=== PATIENT | male | born 1985 | race Caucasian/White ===

== ENCOUNTER 2024-11-30 09:39 | Outpatient (RCR) | payer BC, SELFPAY ==
--- NOTE | 2024-12-04 23:47 | CTCCONSULT_ITS ---
Patient: XAVIER CURRY : 1985 MR#: [id number] Page 2 of 3 CONSULTATION NOTE DATE OF CONSULTATION: 11/30/2024 NAME: XAVIER CURRY ACCOUNT: [id number] : 1985 AGE: 39 REFERRING PHYSICIAN: Alicia Cota MD PRIMARY PHYSICIAN: REASON FOR VISIT: Polycythemia HISTORY OF PRESENT ILLNESS: 39-year-old male here to establish his care. Patient states that he was diagnosed with polycythemia vera at [facility]. Patient has been getting phlebotomy. He gets phlebotomized every week to keep his hematocrit below 45. He has been feeling tired and short of breath and attributes it to delaying his phlebotomy. Is not aware if he has JAK2 mutation. Patient is not on testosterone supplement. OTHER MEDICAL HISTORY/CONDITIONS: Polycythemia Diverticulitis - HTN Neurofibromatosis Cholecystectomy - 2018 Several bowel surgeries / appendectomy - related to perforation/peritonitis - 1998 FAMILY HISTORY: Children: Pat grandpa-lung/pancreatic - dx 70's; pat aunt - skin-30' Cancer History:?Mat grandma- breast - dx 50's; Pat grandma - bladder - dx 40 SOCIAL HISTORY: Occupational?History:?[employer] - [employer] Education?Level:?College Graduate, 2 year degree Marital?Status:? Tobacco?Use:?Denies ETOH?Use:?Socailly Drug?Note:?Denies Social?History?Note:?Lives?with? MEDICATIONS: 1. cyproheptadine - 4 mg 1 tab Every day before sleep 2. losartan - 50 mg 1 tab Daily Medications Last Reconciled by Seble Feng RN on 11/30/2024 ALLERGIES: No Known Drug Allergies REVIEW OF SYSTEMS: A complete 14-point review of systems was performed and is negative except as noted in interval history. PHYSICAL EXAMINATION: VITAL SIGNS: Temperature?98.8, B/P?145/87, Height?68?inches, Oxygen?Saturation?99% Weight?172?lbs PAIN: 0 - No pain ECOG Performance Status: 1 - Symptomatic; ambulatory; restricted in strenuous activity GENERAL APPEARANCE: Appears well, in no apparent distress, appropriately interactive. HEENT: Normocephalic, no temporal wasting, normal conjunctiva, no scleral icterus, normal hearing, lips without lesions, neck normal range of motion. CARDIOVASCULAR: Not assessed. PULMONARY: Normal respiratory effort, no respiratory distress or use of accessory muscles, speaking in full sentences, no tachypnea. EXTREMITIES: No pedal edema or cyanosis. SKIN: Normal skin appearance. NEUROLOGIC: Alert and oriented x4. PSHYCHIATRIC: Appropriate affect, mood normal, behavior normal, intact thought and speech. LABORATORY DATA: I have personally reviewed and interpreted each of the patient?s relevant lab tests, abnormal findings are below: Date ASSESSMENT/PLAN: #1 polycythemia Patient is a known with a diagnosis of polycythemia and has been on phlebotomy I will order phlebotomy to keep hematocrit below 45 with the support of normal saline IV fluid Will check for JAK2 mutation Testosterone level CBC CMP Liver ultrasound I will get port catheter placed for patient for long-term phlebotomy CBC CMP phlebotomy orders port catheter placement JAK2 mutation HFE mutation RETURN TO CLINIC: 4 weeks BILLING AND COMPLIANCE: I reviewed external records from providers outside my specialty as summarized above. I spent a total of 50 minutes on this patient?s care on the day of their visit excluding time spent related to any billed procedures. This time includes time spent with the patient as well as time spent documenting in the medical record, reviewing patients records and tests, obtaining history, placing orders, communicating with other healthcare professionals, counseling the patient, family or caregiver, and/or care coordination for the diagnoses above. Electronically Signed by: Chucho Vick MD T: 11:45 PM CC: PCP: Referring: Alicia Cota This document was completed utilizing speech recognition software. Grammatical errors, random word insertions, pronoun errors, and incomplete sentences are an occasional consequence of this system due to software limitations, ambient noise, and hardware issues. Any formal questions or concerns about the content, text or information contained within the body of this dictation should be directly addressed to the provider for clarification.
== END 2024-12-26 23:59 | disposition home or self-care (01) ==
LOC: SCTC 09:39
PROVIDERS: PCP Registered Nurse; Referring Provider Registered Nurse; Visit Provider Internal Medicine Hematology & Oncology
DX: D45 Polycythemia vera (principal)
CPT/HCPCS: 99213; G0463

== ENCOUNTER → 2024-12-08 | Outpatient (CLI) | payer BC, SELFPAY ==
[2024-12-08 09:31] LABS: Flow Cytometry* See Sep Rpt; Misc Send Out* See Sep Rpt
[2024-12-08 11:02] LABS: Basophils # (Auto) 0.1 Thou/mm3 (0.0-0.2); Basophils % (Auto) 1 % (0-2.5); Eosinophils # (Auto) 0.3 Thou/mm3 (0.0-0.5); Eosinophils % (Auto) 6 % (0-10); Hematocrit 52.4 % (41.0-53.0); Hemoglobin 17.9 g/dL (13.5-16.0); Immature Granulocytes % (Auto) 0 % (0-0); Immature Granulocytes Auto 0.01 Thou/mm3 (0.00-0.00); Lymphocytes % (Auto) 19 % (10-50); Mean Corpuscular HGB Conc 34.2 g/dl (31.0-37.0); Mean Corpuscular Hemoglobin 30.3 pg (25.0-35.0); Mean Corpuscular Volume 89 fL (80-100); Monocytes # (Auto) 0.6 Thou/mm3 (0.0-0.8); Monocytes % (Auto) 12 % (0-12); Neutrophils # (Auto) 3.2 Thou/mm3 (1.8-7.7); Neutrophils % (Auto) 61 % (37-80); Nucleated Red Blood Cell % 0 /100 WBC (0); Platelet Count 224 Thou/mm3 (140-440); RDW Standard Deviation 46.7 fL (35.1-43.9); Red Blood Count 5.91 Miln/mm3 (4.50-5.90); White Blood Count 5.3 Thou/mm3 (3.8-10.6)
[2024-12-08 11:32] LABS: Alanine Aminotransferase 64 U/L (10-49); Albumin, Serum 4.2 gm/dL (3.5-5.0); Albumin/Globulin Ratio 1.7 (1.2-2.2); Alkaline Phosphatase 73 U/L (46-116); Anion Gap 10 (7-16); Aspartate Amino Transferase 32 U/L (0-34); BUN/Creatinine Ratio 19 Ratio (12-20); Bilirubin,Total 0.9 mg/dL (0.3-1.2); Blood Urea Nitrogen 21 mg/dL (9-23); Calcium 9.8 mg/dL (8.3-10.6); Calcium (Corrected) 9.8 mg/dL (8.5-10.1); Carbon Dioxide 25.7 mMol/L (20.0-31.0); Chloride 105 mMol/L (98-107); Creatinine (Component) 1.1 mg/dL (0.6-1.3); Globulin 2.5 gm/dL (2.3-3.5); Glucose 96 mg/dL (74-106); Osmolality,Calculated 284 (275-295); Potassium 4.3 mMol/L (3.4-5.1); Sodium 141 mMol/L (136-145); Total Protein 6.7 gm/dL (5.7-8.2); eGFR > 60 See Note
[2024-12-14 06:51] LABS: Erythropoietin (EPO)* 4.6 mIU/mL (2.6-18.5); Testosterone,Total* 154 ng/dL (250-1100)
== END | disposition home or self-care (01) ==
LOC: SCTO 09:03
PROVIDERS: PCP Family Medicine; Referring Provider Internal Medicine Hematology & Oncology; Visit Provider Internal Medicine Hematology & Oncology
DX: D45 Polycythemia vera (principal)
CPT/HCPCS: 36415; 80053; 81219; 81256; 81270; 81279; 81339; 82668; 84403; 85025

== ENCOUNTER → 2025-01-02 | Outpatient (CLI) | payer BC, SELFPAY ==
--- NOTE | 2025-01-02 11:00 | XR_ITS ---
Examination: Abdomen sonogram, Limited Date and time of exam: January 02 2025, 11:00 AM Indications: Clinical diagnosis cirrhosis Technique: Real-time sanchez scale transabdominal sonographic images of the upper abdomen obtained. Findings: Absent gallbladder Normal common bile duct 0.3 cm Pancreatic head 3.4 cm Liver 13.4 cm smooth contour no focal liver lesions Normal hepatopedal portal venous flow Patent IVC Impression: Absent gallbladder Normal common bile duct Normal liver
== END | disposition home or self-care (01) ==
LOC: CDIM 10:54
PROVIDERS: PCP Family Medicine; Referring Provider Internal Medicine Hematology & Oncology; Visit Provider Internal Medicine Hematology & Oncology
DX: D45 Polycythemia vera (principal); Z90.49 Acquired absence of other specified parts of digestive tract
CPT/HCPCS: 76705

== ENCOUNTER 2025-01-06 06:55 | Day surgery (SDC) | payer BC, SELFPAY ==
[2025-01-05 06:50] VITALS: BMI 26.3
--- NOTE | 2025-01-05 07:10 | EKG_ITS ---
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
[2025-01-05 08:45] LABS: Basophils # (Auto) 0.1 Thou/mm3 (0.0-0.2); Basophils % (Auto) 1 % (0-2.5); Eosinophils # (Auto) 0.4 Thou/mm3 (0.0-0.5); Eosinophils % (Auto) 6 % (0-10); Hematocrit 50.8 % (41.0-53.0); Hemoglobin 17.5 g/dL (13.5-16.0); Immature Granulocytes % (Auto) 0 % (0-0); Immature Granulocytes Auto 0.02 Thou/mm3 (0.00-0.00); Lymphocytes # (Auto) 1.1 Thou/mm3 (1.0-4.8); Lymphocytes % (Auto) 20 % (10-50); Mean Corpuscular HGB Conc 34.4 g/dl (31.0-37.0); Mean Corpuscular Hemoglobin 30.8 pg (25.0-35.0); Mean Corpuscular Volume 89 fL (80-100); Monocytes # (Auto) 0.8 Thou/mm3 (0.0-0.8); Monocytes % (Auto) 14 % (0-12); Neutrophils # (Auto) 3.3 Thou/mm3 (1.8-7.7); Neutrophils % (Auto) 59 % (37-80); Nucleated Red Blood Cell % 0 /100 WBC (0); Platelet Count 219 Thou/mm3 (140-440); RDW Standard Deviation 48.7 fL (35.1-43.9); Red Blood Count 5.69 Miln/mm3 (4.50-5.90); White Blood Count 5.6 Thou/mm3 (3.8-10.6)
[2025-01-05 09:01] LABS: Alanine Aminotransferase 52 U/L (10-49); Albumin, Serum 4.3 gm/dL (3.5-5.0); Albumin/Globulin Ratio 1.7 (1.2-2.2); Alkaline Phosphatase 95 U/L (46-116); Anion Gap 6 (7-16); Aspartate Amino Transferase 34 U/L (0-34); BUN/Creatinine Ratio 14 Ratio (12-20); Bilirubin,Total 0.8 mg/dL (0.3-1.2); Blood Urea Nitrogen 18 mg/dL (9-23); Calcium 9.4 mg/dL (8.3-10.6); Calcium (Corrected) 9.4 mg/dL (8.5-10.1); Carbon Dioxide 27.9 mMol/L (20.0-31.0); Chloride 106 mMol/L (98-107); Creatinine (Component) 1.3 mg/dL (0.6-1.3); Estimated Creatinine Clearance 72.3 mL/min (>60); Globulin 2.5 gm/dL (2.3-3.5); Glucose 106 mg/dL (74-106); Osmolality,Calculated 281 (275-295); Potassium 4.6 mMol/L (3.4-5.1); Sodium 140 mMol/L (136-145); Total Protein 6.8 gm/dL (5.7-8.2); eGFR > 60 See Note
[2025-01-05 09:19] LABS: INR 0.9 (0.9-1.3); Partial Thromboplastin Time 27.8 Seconds (22.0-36.0); Prothrombin Time 10.1 Seconds (9.0-12.2)
--- NOTE | 2025-01-05 14:22 | SUR.PREOP ---
Records requested from charge authorizer Li Fajardo, waiting for paper work.
[2025-01-06] VITALS (9 sets, daily range): BP systolic 123–136; BP diastolic 79–94; PULSE 78–97; RESP 13–18; TEMP 36.8–37.1; O2SAT 97–100; BMI 26.9
--- NOTE | 2025-01-06 07:52 | SUR.PREOP ---
Patient expressed gratitude for prayer before their procedure.
[2025-01-06] MEDS: RINGERS LACTATED 1000 ML 1,000 ML 20 ML IV (07:55)
--- NOTE | 2025-01-06 07:55 | SUR.PREOP ---
Addendum entered by Kami Zhu RN 01/06/25 08:28: No new order from Dr. Gandara Original Note: 0745: Informed Dr. Gandara for no cardiac clearance d/t patient seen cotton chopper, per patient stated, My heart was monitor because I had palpitations and faint before. Patient asymptomatic from chest pain and palpitations.
--- NOTE | 2025-01-06 09:54 | XR_ITS ---
Examination: AP chest single view Technique: AP portable supine chest single view Exam date and time: January 06, 2025 1058 hrs. Comparison July 29, 2024 Indications: Status post Port-A-Cath insertion Findings: Right subclavian Port-A-Cath tip right atrium No pneumothorax Prominent vascular congestion Impression: Right subclavian Port-A-Cath tip satisfactory position
--- NOTE | 2025-01-06 11:44 | SUR.PHASEI ---
1144: received patient from OR via [facility]. received report from KEY Byers and Dr. Gandara. oral airway in place. pt sleeping. no s/s of pain or discomfort. no s/s of resp. discomfort. dressing to right upper chest clean, dry and intact. no bleeding from the dressing.
--- NOTE | 2025-01-06 11:48 | SUR.PHASEI ---
1148: pt able to open mouth when ask. oral airway removed at this time.
--- NOTE | 2025-01-06 11:51 | XR_ITS ---
Examination: AP chest single view Technique one AP portable upright chest single view Exam date and time: January 06, 2025 1210 hrs. Comparison January 06, 2025 10:58 AM Indications: Postop Port-A-Cath insertion. Findings: Right subclavian Port-A-Cath tip SVC satisfactory position No pneumothorax Minor prominence of ventricle Impression: Port-A-Cath satisfactory position
--- NOTE | 2025-01-06 11:53 | ESOP_ITS ---
Date of Procedure 01/06/25 Pre Op Diagnosis Polycythemia vera requiring Port-A-Cath Post Op Diagnosis Same Procedure Insertion of a Port-A-Cath using ultrasound guidance Findings I used the right subclavian vein which was easily identified and inserted regular port from [employer] called Profuse Procedure Description After the patient was brought to the operating room he was placed in supine position. Site-Rite ultrasound was used to identify the right subclavian vein and I chose this for insertion of the Port-A-Cath. After the patient's chest and neck were prepped with chloreprep solution and draped I used a mini stick to get into the left subclavian vein. Then I passed a small guidewire measuring 0.018 inch in diameter into the vein. Then this was switched over to a catheter to accommodate larger guidewire measuring 0.035 inches in diameter which was basically a J-wire. Then I used a 9 Macanese valved vessel dilator over the g uidewire which was then pulled out. Then I introduced a 8 Macanese polyurethane catheter from the [employer] and positioned it on the distal part of the superior vena cava. An x-ray was obtained to confirm the position of the tip. The tip was about 23 cm from the insertion site. Then I made a small pocket 5 cm's below the entry site on the right chest below the clavicle to accommodate the port after injecting local anesthesia with 1% Xylocaine. Then I tunneled the polyurethane catheter from the entry site to this pocket in the chest wall and I connected it to regular port from [employer] called profuse using a catheter lock. Excellent blood return was obtained at the end of the procedure and this was flushed with heparinized saline. Then the port was attached to the chest wall muscle using 0 Vicryl sutures. Subcutaneous tissues was closed with 3-0 chromic and the skin by 5-0 nylon stitches. Dressing was applied with Adaptic and 4 x 4 and the patient tolerated the procedure well and left operating room in stable condition. Anesthesia other (General LMA) Pathology / specimen None Estimated Blood Loss 30 Surgeon Isac Boyce MD Surgical Staff Operation Date: 01/06/25 09:00 Case Staff Anesthesiologist: Jamie Gandara
--- NOTE | 2025-01-06 12:02 | SUR.PHASEI ---
1202 Report received from Kami Gilbert RN
--- NOTE | 2025-01-06 12:02 | SUR.PHASEI ---
1202: report given to KEY Herrera. pt alert and oriented. no s/s of rsp. distress or discomfort. dressing to right upper chest clean, dry and intact. no bleeding from dressing.
--- NOTE | 2025-01-06 12:18 | SUR.PHASEI ---
1218 telephone order read back from Dr. Gandara for Ofirmev 1gm via IV, will place order in EMR and administer per MD order
[2025-01-06] MEDS: ACETAMINOPHEN IVPB 1,000 MG/100 ML VIAL 250 MG IV (12:23)
--- NOTE | 2025-01-06 13:04 | SUR.PHASEII ---
1304 Patient meets discharge criteria from recovery, awake and alert, breathing unlabored, vital signs stable, per patient his pain is tolerable, dressing intact; no bleeding noted, patient voided in the restroom prior to discharge, drinking fluids; denies nausea, discharge instructions given to patient and his sister, sister signed discharge instructions. Patient given all his belongings prior to discharge, transported via wheelchair and left in a private vehicle.
== END 2025-01-06 13:04 | disposition home or self-care (01) ==
PROVIDERS: PCP Family Medicine; Referring Provider Surgery; Visit Provider Surgery
PROC: (CPT 36561; principal; 2025-01-06 08:45)
DX: D45 Polycythemia vera (principal); Z01.810 Encounter for preprocedural cardiovascular examination; I10 Essential (primary) hypertension; K21.9 Gastro-esophageal reflux disease without esophagitis
CPT/HCPCS: 36561; 36415; 71045; 71046; 80053; 85025; 85610; 85730; 93005; A4217; A4649; C1788; C1894; J0131; J2250; J2405; J2704; J2765; J3010; J7120; J7999

== ENCOUNTER 2025-01-17 13:42 | Outpatient (RCR) | payer BC, SELFPAY ==
[2025-01-10 14:49] LABS: Basophils % (Auto) 1 % (0-2.5); Eosinophils # (Auto) 0.4 Thou/mm3 (0.0-0.5); Eosinophils % (Auto) 5 % (0-10); Hemoglobin 16.4 g/dL (13.5-16.0); Immature Granulocytes % (Auto) 1 % (0-0); Immature Granulocytes Auto 0.04 Thou/mm3 (0.00-0.00); Lymphocytes # (Auto) 1.1 Thou/mm3 (1.0-4.8); Lymphocytes % (Auto) 15 % (10-50); Mean Corpuscular HGB Conc 34.9 g/dl (31.0-37.0); Mean Corpuscular Hemoglobin 30.4 pg (25.0-35.0); Mean Corpuscular Volume 87 fL (80-100); Monocytes # (Auto) 0.9 Thou/mm3 (0.0-0.8); Monocytes % (Auto) 12 % (0-12); Neutrophils % (Auto) 67 % (37-80); Nucleated Red Blood Cell % 0 /100 WBC (0); Platelet Count 181 Thou/mm3 (140-440); RDW Standard Deviation 47.1 fL (35.1-43.9); Red Blood Count 5.39 Miln/mm3 (4.50-5.90); White Blood Count 7.4 Thou/mm3 (3.8-10.6)
[2025-01-17 14:50] LABS: Basophils # (Auto) 0.1 Thou/mm3 (0.0-0.2); Basophils % (Auto) 1 % (0-2.5); Eosinophils # (Auto) 0.4 Thou/mm3 (0.0-0.5); Eosinophils % (Auto) 6 % (0-10); Hematocrit 41.2 % (41.0-53.0); Hemoglobin 14.8 g/dL (13.5-16.0); Immature Granulocytes % (Auto) 1 % (0-0); Immature Granulocytes Auto 0.04 Thou/mm3 (0.00-0.00); Lymphocytes # (Auto) 1.3 Thou/mm3 (1.0-4.8); Lymphocytes % (Auto) 21 % (10-50); Mean Corpuscular HGB Conc 35.9 g/dl (31.0-37.0); Mean Corpuscular Hemoglobin 31.2 pg (25.0-35.0); Mean Corpuscular Volume 87 fL (80-100); Monocytes # (Auto) 0.8 Thou/mm3 (0.0-0.8); Monocytes % (Auto) 13 % (0-12); Neutrophils # (Auto) 3.7 Thou/mm3 (1.8-7.7); Neutrophils % (Auto) 59 % (37-80); Nucleated Red Blood Cell % 0 /100 WBC (0); Platelet Count 199 Thou/mm3 (140-440); RDW Standard Deviation 46.9 fL (35.1-43.9); Red Blood Count 4.75 Miln/mm3 (4.50-5.90); White Blood Count 6.4 Thou/mm3 (3.8-10.6)
== END 2025-01-25 23:59 | disposition home or self-care (01) ==
LOC: SCTC 13:42
PROVIDERS: PCP Family Medicine; Referring Provider Family Medicine; Visit Provider Internal Medicine Hematology & Oncology
DX: D45 Polycythemia vera (principal)
CPT/HCPCS: 36591; 85025; 99195; A4216; J7040

== ENCOUNTER 2025-02-21 14:15 | Outpatient (RCR) | payer BC, SELFPAY ==
[2025-02-07 14:58] LABS: Basophils % (Auto) 0 % (0-2.5); Eosinophils # (Auto) 0.1 Thou/mm3 (0.0-0.5); Eosinophils % (Auto) 1 % (0-10); Hematocrit 38.8 % (41.0-53.0); Hemoglobin 13.6 g/dL (13.5-16.0); Immature Granulocytes % (Auto) 1 % (0-0); Immature Granulocytes Auto 0.05 Thou/mm3 (0.00-0.00); Lymphocytes # (Auto) 1.2 Thou/mm3 (1.0-4.8); Lymphocytes % (Auto) 11 % (10-50); Mean Corpuscular HGB Conc 35.1 g/dl (31.0-37.0); Mean Corpuscular Hemoglobin 31.5 pg (25.0-35.0); Mean Corpuscular Volume 90 fL (80-100); Monocytes # (Auto) 0.7 Thou/mm3 (0.0-0.8); Monocytes % (Auto) 7 % (0-12); Neutrophils # (Auto) 8.4 Thou/mm3 (1.8-7.7); Neutrophils % (Auto) 80 % (37-80); Nucleated Red Blood Cell % 0 /100 WBC (0); Platelet Count 243 Thou/mm3 (140-440); RDW Standard Deviation 48.7 fL (35.1-43.9); Red Blood Count 4.32 Miln/mm3 (4.50-5.90); White Blood Count 10.5 Thou/mm3 (3.8-10.6)
[2025-02-21 15:17] LABS: Basophils % (Auto) 1 % (0-2.5); Eosinophils # (Auto) 0.2 Thou/mm3 (0.0-0.5); Eosinophils % (Auto) 2 % (0-10); Hematocrit 46.4 % (41.0-53.0); Hemoglobin 15.8 g/dL (13.5-16.0); Immature Granulocytes % (Auto) 0 % (0-0); Immature Granulocytes Auto 0.02 Thou/mm3 (0.00-0.00); Lymphocytes # (Auto) 1.3 Thou/mm3 (1.0-4.8); Lymphocytes % (Auto) 20 % (10-50); Mean Corpuscular HGB Conc 34.1 g/dl (31.0-37.0); Mean Corpuscular Hemoglobin 31.4 pg (25.0-35.0); Mean Corpuscular Volume 92 fL (80-100); Monocytes # (Auto) 0.7 Thou/mm3 (0.0-0.8); Monocytes % (Auto) 11 % (0-12); Neutrophils # (Auto) 4.4 Thou/mm3 (1.8-7.7); Neutrophils % (Auto) 66 % (37-80); Nucleated Red Blood Cell % 0 /100 WBC (0); Platelet Count 245 Thou/mm3 (140-440); RDW Standard Deviation 50.1 fL (35.1-43.9); Red Blood Count 5.03 Miln/mm3 (4.50-5.90); White Blood Count 6.7 Thou/mm3 (3.8-10.6)
== END 2025-02-25 23:59 | disposition home or self-care (01) ==
LOC: SCTC 14:15
PROVIDERS: PCP Family Medicine; Referring Provider Nurse Practitioner Family; Visit Provider Nurse Practitioner Family
DX: D75.1 Secondary polycythemia (principal); E29.1 Testicular hypofunction
CPT/HCPCS: 36591; 85025; 99195; 99212; A4216; J1642; J7040; G0463

== ENCOUNTER 2025-03-10 22:13 | Inpatient (IN) | payer BC, SELFPAY ==
[2025-03-10 22:14] VITALS: BMI 27.2
[2025-03-10 22:22] VITALS: BP 137/97; PULSE 103; RESP 20; TEMP 37.2; O2SAT 97
--- NOTE | 2025-03-10 22:40 | XR_ITS ---
Examination: CT abdomen with intravenous contrast CT pelvis with intravenous contrast 2-D coronal reconstructions 2-D sagittal reconstructions Date and time of exam:March 11, 2025 1501 hours Comparison July 29, 2024 INDICATIONS: Generalized abdominal pain nausea vomiting today, history kidney stones. CTDI: vol (mGy) 7.7 DLP: (mGycm) 450 Technique: Multiple axial sections of the abdomen and pelvis have been obtained. 64 slice high-resolution scanner used. 3 mm axial sections have been obtained, post intravenous injection 60 cc Isovue-370 2-D sagittal, coronal reconstructions obtained. Low dose protocols were performed. One or more of the following dose reduction techniques were used; automated exposure control, adjustment of the mA and/or KV according to patient size, use of iterative reconstruction technique. Findings: Bibasilar pneumonia Hepatosplenomegaly fatty infiltration throughout the liver Absent gallbladder Common bile duct 8 mm No peripancreatic edema next line and no hydronephrosis Fluid distended small bowel loops with mild wall thickening No prostatomegaly Urinary bladder intact Osseous structures intact IMPRESSION: Bibasilar pneumonia Abnormal small bowel loops are fluid distended with wall thickening, consider enteritis such as Crohn's disease, early small bowel obstruction not excluded, consider Gastrografin small bowel series follow-up
--- NOTE | 2025-03-10 22:42 | EDRME_ITS ---
Rapid Medical Screening Exam [facility] Arrival date/time: 03/10/25 22:13 40M with history of diverticulitis w/ complications and polycythemia vera presents to ED with 2 days of ab pain and N/V. Patient denies dysuria and diarrhea. Chief Complaint: Abdominal Pain Vital signs: Vital Signs Temperature 98.9 F 03/10/25 22:22 Pulse Rate 103 H 03/10/25 22:22 Respiratory Rate 20 03/10/25 22:22 Blood Pressure 137/97 H 03/10/25 22:22 Pulse Oximetry (%) 97 03/10/25 22:22 Oxygen Delivery Method Room Air 03/10/25 22:22
[2025-03-10 23:03] LABS: Lactate (Lactic Acid) 2.2 mMol/L (0.4-2.0)
[2025-03-10 23:07] LABS: Basophils % (Auto) 0 % (0-2.5); Eosinophils # (Auto) 0.3 Thou/mm3 (0.0-0.5); Eosinophils % (Auto) 4 % (0-10); Hematocrit 52.4 % (41.0-53.0); Hemoglobin 17.3 g/dL (13.5-16.0); Immature Granulocytes % (Auto) 0 % (0-0); Immature Granulocytes Auto 0.03 Thou/mm3 (0.00-0.00); Lymphocytes # (Auto) 1.5 Thou/mm3 (1.0-4.8); Lymphocytes % (Auto) 18 % (10-50); Mean Corpuscular Volume 91 fL (80-100); Monocytes # (Auto) 1.3 Thou/mm3 (0.0-0.8); Monocytes % (Auto) 15 % (0-12); Neutrophils # (Auto) 5.3 Thou/mm3 (1.8-7.7); Neutrophils % (Auto) 63 % (37-80); Nucleated Red Blood Cell % 0 /100 WBC (0); Platelet Count 291 Thou/mm3 (140-440); RDW Standard Deviation 47.8 fL (35.1-43.9); Red Blood Count 5.77 Miln/mm3 (4.50-5.90); White Blood Count 8.5 Thou/mm3 (3.8-10.6)
[2025-03-10 23:41] LABS: Alanine Aminotransferase 32 U/L (10-49); Albumin, Serum 4.5 gm/dL (3.5-5.0); Albumin/Globulin Ratio 1.7 (1.2-2.2); Alkaline Phosphatase 63 U/L (46-116); Anion Gap 14 (7-16); Aspartate Amino Transferase 24 U/L (0-34); BUN/Creatinine Ratio 8 Ratio (12-20); Bilirubin,Total 0.5 mg/dL (0.3-1.2); Blood Urea Nitrogen 12 mg/dL (9-23); Calcium 9.3 mg/dL (8.3-10.6); Calcium (Corrected) 9.3 mg/dL (8.5-10.1); Carbon Dioxide 24.4 mMol/L (20.0-31.0); Chloride 101 mMol/L (98-107); Creatinine (Component) 1.5 mg/dL (0.6-1.3); Estimated Creatinine Clearance 62.1 mL/min (>60); Globulin 2.7 gm/dL (2.3-3.5); Glucose 99 mg/dL (74-106); Lipase 31 U/L (12-53); Osmolality,Calculated 277 (275-295); Potassium 4.1 mMol/L (3.4-5.1); Procalcitonin 0.13 ng/ml (0.0-0.49); Sodium 139 mMol/L (136-145); Total Protein 7.2 gm/dL (5.7-8.2); eGFR 59 See Note
[2025-03-11] VITALS (36 sets, daily range): BP systolic 123–157; BP diastolic 70–98; PULSE 78–97; RESP 4–20; TEMP 36.1–37.3; O2SAT 93–100; BMI 27.3
[2025-03-11] MEDS: MORPHINE SULF INJ 10 MG/ML VIAL 5 MG IVP ×2 (00:23→06:57)
[2025-03-11] MEDS: ONDANSETRON INJ 2 MG/ML INJ 2 ML 4 MG IV ×2 (00:24→06:57)
[2025-03-11] MEDS: SODIUM CHLORIDE 0.9% 1000 ML 1,000 ML 999 ML IV ×2 (00:24→05:43)
--- NOTE | 2025-03-11 00:29 | EDNOTE_ITS ---
ED Abdominal Pain RME/HPI General Chief Complaint: Abdominal Pain Stated complaint: ABD PAIN, VOMITING, HIGH BP Arrival date/time: 03/10/25 22:13 RME / HPI RME / HPI narrative: 03/10/25 22:13 40M with history of diverticulitis w/ complications and polycythemia vera presents to ED with 2 days of ab pain and N/V. Patient denies dysuria and diarrhea. DR LIN MAIN ED EVALUATION: 40 y/o male with SHx of colectomy and PMHx of Gall Bladder Disease, Diverticulitis, Obstructive Bowel and Gastroesophageal Reflux Disease presents to ED c/o abdominal pain, vomiting, chills, piles of blood in his stool, and constipation x 2 days. States he is usually able to go to the bathroom up to 15 times per day, but now has not had a bowel movement in the last 2 days. Patient has tried Pepcid, Pepto Bismol, and drinking soda with no relief. Patient has undergone 11 surgeries since he was a child, including removing 13 inches of the small intestine and appendectomy, s/p rupture of the small intestine. Patient denies fever, tarry stool or any other associated symptoms or aggravating factors. No modifying factors, no radiation, no migration. No severe pain reported overall. Related Data Home Medications ?Medication ?Instructions ?Recorded ?Confirmed cyproheptadine 4 mg tablet 4 mg PO HS 01/05/25 5 losartan 50 mg tablet (Cozaar) 50 mg PO QDAY 01/05/25 01/06/25 Allergies Allergy/AdvReac Type Severity Reaction Status Date / Time No Known Allergies Allergy Verified 03/10/25 22:14 Review of Systems Review of Systems Systems Reviewed: All systems reviewed, normal except as documented Past Medical History Past Medical History CARDIAC: Positive Cardiac Disorders and Hypertension GASTROINTESTINAL: Positive Gall Bladder Disease, Diverticulitis, Obstructive Bowel and Gastroesophageal Reflux Disease GENITOURINARY: Positive Genitourinary Disorders HEMATOLOGIC: Positive Blood Disorders (Polycythemia vera) and Clotting Problems PSYCHO/SOCIAL: Positive Anxiety OTHER HISTORY: Positive Hospitalization and Blood Transfusions Family History FAMILY HISTORY: Positive Family Cardiac Disorders, Family Cancer and Family Surgery Surgical History SURGICAL: Positive Abdominal Surgery and Bowel Surgery (Colectomy) ED Exam Narrative Physical exam: GENERAL APPEARANCE: alert and oriented x 4, well-developed, well-nourished, no acute distress VITALS: All vitals were reviewed and the pulse ox is % on room air, which is normal according to my interpretation. HEENT: Normocephalic, atraumatic; pupils equal, round, reactive to light; EOMI; mucous membranes pink, moist; oropharynx clear NECK: Supple LUNGS: CTABL; no wheezes, no rales, no rhonchi HEART: Regular rate, regular rhythm; normal S1, S2; no murmurs ABDOMEN: moderately distended; high-pitched BS; soft, diffusely tender, no guarding, no rebound; no masses, no organomegaly, no hernia BACK: no CVA tenderness EXTREMITIES: atraumatic; no edema NEUROLOGIC: awake; alert and oriented x4; cranial nerves II-XII grossly intact; no focal sensory or motor deficits PSYCHIATRIC: appropriate mood and affect SKIN: warm, dry, normal color; no rashes Course Quality Measures none Orders Category Date Time Status CT Screening NOW Care 03/10/25 22:41 Active Insert IV NOW Care 03/10/25 22:[address] abdomen pelvis w con Stat Exams 03/10/25 22:40 Taken CBC Stat Lab 03/10/25 22:46 Completed CMP [Comprehensive Metabolic Panel] Stat Lab 03/10/25 22:46 Completed Drug Screen,Urine Stat Lab 03/10/25 22:42 Ordered Lactate (Lactic Acid) Stat Lab 03/10/25 22:46 Completed Lactic Acid, 3 HR Stat Lab 03/11/25 02:10 Completed Lipase Stat Lab 03/10/25 22:46 Completed Procalcitonin Stat Lab 03/10/25 22:46 Completed Urinalysis, C/S if Indicated Stat Lab 03/10/25 22:42 Ordered Morphine Inj Med 03/10/25 22:41 Discontinued 5 mg IVP X1 ONE Ondansetron Inj [Zofran Inj] Med 03/10/25 22:41 Discontinued 4 mg IV X1 ONE Piper/Tazo 3.375 gm Premix [Zosyn] Med 03/11/25 05:36 Ordered 3.375 gm in 50 ml IV X1 Sodium Chloride 0.9% 1000 ml [Ns] 1,000 ml Med 03/10/25 22:41 Discontinued IV 999 mls/hr Vital Signs Vital signs: Vital Signs Temperature 98.9 F 03/10/25 22:22 Pulse Rate 103 H 03/10/25 22:22 Respiratory Rate 20 03/10/25 22:22 Blood Pressure 137/97 H 03/10/25 22:22 Pulse Oximetry (%) 97 03/10/25 22:22 Oxygen Delivery Method Room Air 03/10/25 22:22 Abdominal Pain MDM MDM Narrative MDM Narrative:: Scribe Attestation: I, Carlie Wall, am scribing for and in the presence of Dr. Lin. Provider Notation: Although this document has been carefully reviewed, there may still be some phonetic and other typographical errors.? These errors are purely grammatical due to imperfections in the software program and should not be construed in any way to? compromise the substance of the patient's medical care during this visit. Patient data External records reviewed:: [facility] previous records (No prior ED records available for review.) Clinical information provided by:: patient Social determinants that could affect healthcare access:: none Patient has the following chronic illnesses:: Hypertension, Gall Bladder Disease, Diverticulitis, Obstructive Bowel, Gastroesophageal Reflux Disease, Polycythemia vera, Anxiety How is presenting disease/condition affected by chronic disease/condition?: exacerbated by Evaluation data The following diagnostics were reviewed and interpreted by me:: lab results and radiology exam(s) Lab and/or radiology exams considered but not ordered:: None Interpretation Summary: RADIOLOGY Abdomen/Pelvis CT: Pending official radiology report. CT scan of the abdomen and pelvis with intravenous contrast (axial sections with sagittal and coronal reformats) March 11, 2025 0301 hours Clinical History: Pain. Comparison: None. Findings: Mild bilateral lung consolidations, atelectasis versus pneumonia. The liver, pancreas, spleen, kidneys and adrenals are unremarkable. Status postcholecystectomy. No biliary duct dilation. No evidence of bowel obstruction. The appendix is surgically absent. Status post partial colectomy. Focal thickening of the small bowel in the right lower quadrant associated with peripheral mesenteric edema. There is no mesenteric or retroperitoneal adenopathy. The urinary bladder is unremarkable. There is no free fluid or free air. The osseous structures are unremarkable. Dilated small bowel loops with transition point at the level of the inflamed small bowel loop. Impression: 1. Moderate enteritis associated with partial obstruction. Consider Crohn's disease in the differential diagnosis. 2. Mild bilateral lung consolidations, atelectasis versus pneumonia. Medications / Prescriptions Medications or Prescriptions considered but not ordered:: None Medication administrations:: Medication Administration History Piperacillin/Tazobactam/Dextrose (Zosyn) 3.375 gm in 50 mls @ 100 mls/hr IV X1 ONE Stop: 03/11/25 06:05 Discontinued Medications Sodium Chloride (Ns) 1,000 mls @ 999 mls/hr IV .Q1H1M ONE Stop: 03/10/25 23:41 Last Infusion: 03/11/25 01:22 Dose: Infused Documented By: Admin: 03/11/25 00:24 Dose: 999 mls/hr Documented By: BD Morphine Sulfate (Morphine Sulf Inj 10 Mg/Ml Vial) 5 mg IVP X1 ONE Stop: 03/10/25 22:42 Last Admin: 03/11/25 00:23 Dose: 5 mg Documented By: BD Ondansetron HCl (Ondansetron Inj 2 Mg/Ml Inj 2 Ml) 4 mg IV X1 ONE; Protocol Stop: 03/10/25 22:42 Last Admin: 03/11/25 00:24 Dose: 4 mg Documented By: BD See above if any. Consultations Consultation(s) initiated? (list below): Yes Consultation #1 (Physician, Specialty, Details): Discussed with Dr. Martin for admission. Reviewed the patient?s HPI, PMHx, lab and/or radiology results. Discussed treatment plan. Will accept patient for admission. Time: 05:36 Diagnosis Differential diagnosis abdominal pain: abdominal pain, constipation, diverticulitis, gastroenteritis and small bowel obstruction Most likely diagnosis given after review of the tests above:: Abdominal pain, Enteritis, Partial bowel obstruction Admission Indicated Admission indicated?: not indicated Explain why admission is indicated or not indicated:: Partial bowel obstruction, Enteritis, Abdominal pain Admission Request Was there a request for admission?: Yes Admission Attestation Admission request attestation: Discussed case with [] from Hospitalist service regarding admission. Discussed patients ED course, exam findings, labs, and radiology results. The Hospitalist [agrees,declines] to accept the patient for admission. Disposition Plan Disposition Plan: Admit Discharge Plan Plan Patient Disposition: Admit Acute Care w/in Hospital Prescriptions/Referrals Prescriptions/Med Rec: No Action cyproheptadine 4 mg tablet 4 mg PO HS Patient Comments: TAKE 1 TABLET BY MOUTH EVERY DAY AT BEDTIME losartan [Cozaar] 50 mg tablet 50 mg PO QDAY Referrals: Moreno Washington MD [Primary Care Provider] - In 1 week Problem List Clinical Impression: Abdominal pain, Enteritis, Partial bowel obstruction Patient/Caregiver Discharge Instructions Print Language: Ethiopian Stand Alone Forms: Elaina Award Info., Patient Portal Info Letter
[2025-03-11 02:00] LABS: Reflex Lactate? Y
[2025-03-11 02:19] LABS: Lactic Acid, 3 HR 0.8 mMol/L (0.4-2.0)
[2025-03-11] MEDS: PIPER/TAZO 3.375 GM PREMIX 3.375 GM/50 ML BAG IV (05:43)
--- NOTE | 2025-03-11 06:53 | PC.NURSE ---
NOTIFIED THAT PT IS REQUESTING PAIN MEDS
--- NOTE | 2025-03-11 07:37 | XR_ITS ---
Examination: Small bowel series with KUBs Date and time: March 11, 2025, 1403 hrs. Indications: Abdominal pain and distention this week. Findings: Patient received 120 cc Gastrografin with abdomen films Small bowel loops are minimally dilated. Contrast is in the colon on the two hour film Impression: Negative for small bowel obstruction No further abdomen films are needed
[2025-03-11] MEDS: LIDOCAINE JELLY 2% (Urojet) 10 ML TUBE TOP (09:09)
--- NOTE | 2025-03-11 09:25 | XR_ITS ---
Examination: AP chest single view Technique one AP portable upright chest single view Date and time: March 11, 2025 0929 hrs. Comparison January 06, 2025 Indications: Post orogastric tube placement Findings: Orogastric tube in the gastric fundus Normal heart size Right subclavian Port-A-Cath tip satisfactory position Lungs are clear Impression: Advance the orogastric tube 5 cm
[2025-03-11] MEDS: RINGERS LACTATED 1000 ML 1,000 ML 75 ML IV (09:29)
[2025-03-11 09:44] LABS: Collection Type, Urine Clean Catch; Squamous Epithelial Cell,Urine 0 /hpf (0-5)
[2025-03-11 09:56] LABS: Bilirubin,Urine Negative (Negative); Blood,Urine Negative (Negative); Clarity,Urine Clear (Clear/Hazy); Color,Urine Yellow (Lt Yel-Yel); Culture Indicated,Urine Not Indicated; Glucose, Urine Negative (Negative); Ketones,Urine 3+ (Negative); Leukocyte Esterase,Urine Negative (Negative); Nitrite,Urine Negative (Negative); Protein,Urine Trace (Neg - Trace); RBC,Urine 1 /hpf (0-3); Urobilinogen,Urine Negative mg/dL (0.0-1.0); WBC,Urine 2 /hpf (0-5)
[2025-03-11 10:07] LABS: Amphetamine/Methamp Scrn,U Negative (Negative); Barbiturate Screen,Urine Negative (Negative); Benzodiazepines Screen,Urine Negative (Negative); Benzoylecgonine Screen, Ur Negative (Negative); Fentanyl Screen,Urine Negative (Negative); Opiate Screen,Urine Positive (Negative); THC Screen,Urine Positive (Negative)
--- NOTE | 2025-03-11 10:40 | PD.RESHP ---
Documentation for date of: 03/11/25 HPI History of Present Illness History of present illness: Hank Hurd III is a 40-year-old male with past medical history of hypertension, polycythemia, recurrent SBO's, and diverticulitis status post partial colectomy due to perforation in 1998 who presented on 03/11 for acute onset abdominal pain. Patient states that abdominal pain started 3 days ago, acute in onset, and associated with nausea and vomiting. States that his last BM was the day symptoms started and has not passed gas within last 24 hours. Of note, patient states that he had a partial colectomy due to diverticulitis complicated by perforation in 1998 and has had multiple abdominal surgeries leading to recurrent SBO's. Normally patient has 10-12 BMs per day, likely secondary to partial colectomy, and due to acute change in symptoms with abdominal pain he presented to the ED. In the ED, vitals showed heart rate 103 but otherwise vital signs stable. CBC showed hemoglobin 17.3, consistent with history of polycythemia. CHEM panel showed HARSHA with creatinine 1.5 (baseline 1.1), lactic acidosis 2.2 that downtrended to 0.[address] A/P showed bibasilar pneumonia, abnormal fluid distended small bowel loops with wall thickening. NG tube placed on LIS and small bowel series ordered. PMHx: Hypertension, polycythemia, recurrent SBO's, diverticulitis complicated by perforation Medications: Losartan 50 mg, metoprolol succinate 25 mg SHx: Denies illicit drug or tobacco use, endorses smoking marijuana PSHx: Partial colectomy in 1998, cholecystectomy, appendectomy Review of Systems Review of Systems Systems Reviewed: All systems reviewed, normal except as documented Exam Vital Signs Temp Pulse Resp BP Pulse Ox O2 Del Method 99.1 F 84 16 157/91 H 95 Room Air 03/11/25 10:22 03/11/25 10:22 03/11/25 10:22 03/11/25 10:22 03/11/25 10:03/11/25 10:22 Narrative Exam General: AOx3, no acute distress, able to speak full sentences HEENT: NC/AT, mucous membranes moist, bilateral sclera anicteric Cardiovascular: regular rate and rhythm, S1/S2 present, no murmurs appreciated Pulmonary: clear to auscultation bilaterally, no rales/rhonchi/wheezes Abdominal: tender in RLQ to palpation, soft, non-distended, no rebound/guarding, normal bowel sounds present Musculoskeletal: normal ROM, no peripheral edema Skin: warm and dry, intact, no rashes Neuro: CN II-XII intact, no focal deficits Results: Labs 03/12/25 05:26 03/12/25 05:26 Labs: Short CBC 03/10/25 Range/Units 22:46 WBC 8.5 (3.8-10.6) Thou/mm3 Hgb 17.3 H (13.5-16.0) g/dL Hct 52.4 (41.0-53.0) % Plt Count 291 D (140-440) Thou/mm3 BMP 03/10/25 22:46 Sodium 139 Potassium 4.1 Chloride 101 Carbon Dioxide 24.4 BUN 12 Creatinine 1.5 H Glucose 99 Calcium 9.3 Liver Function 03/10/25 Range/Units 22:46 Total Bilirubin 0.5 (0.3-1.2) mg/dL AST 24 (0-34) U/L ALT 32 (10-49) U/L Alkaline Phosphatase 63 (46-116) U/L Albumin 4.5 (3.5-5.0) gm/dL Urine 03/11/25 Range/Units 08:48 Urine Color Yellow (Lt Yel-Yel) Urine Clarity Clear (Clear/Hazy) Urine pH 6.0 (5.0-7.0) Ur Specific [place] 1.020 (1.001-1.035) Urine Protein Trace (Neg - Trace) Urine Glucose (UA) Negative (Negative) Quality Measures Quality Measures none Medications Home Medications and Allergies Home Medications ?Medication ?Instructions ?Recorded ?Confirmed ?Type cyproheptadine 4 mg tablet 4 mg PO HS 01/05/25 03/11/25 History losartan 50 mg tablet (Cozaar) 50 mg PO QDAY 01/05/25 03/11/25 History metoprolol succinate 25 mg 25 mg PO QDAY 03/11/25 03/11/25 History tablet,extended release 24 hr Allergies Allergy/AdvReac Type Severity Reaction Status Date / Time No Known Allergies Allergy Verified 03/10/25 22:14 Visit Medications Acetaminophen (Acetaminophen Supp 650 Mg Supp) 650 mg SC Q6HR PRN PRN Reason: PAIN OR FEVER > 100.4 Stop: 04/10/25 07:33 Lactated Ringer's (Lactated Ringers) 1,000 mls @ 75 mls/hr IV .[id number] JUAN FRANCISCO Stop: 04/10/25 07:44 Last Admin: 03/11/25 09:29 Dose: 75 mls/hr Ondansetron HCl (Ondansetron Inj 2 Mg/Ml Inj 2 Ml) 4 mg IVP Q6H PRN; Protocol PRN Reason: NAUSEA OR VOMITING Stop: 04/10/25 07:33 Discontinued Medications Sodium Chloride (Ns) 1,000 mls @ 999 mls/hr IV .Q1H1M ONE Stop: 03/10/25 23:41 Last Infusion: 03/11/25 01:22 Dose: Infused Piperacillin/Tazobactam/Dextrose (Zosyn) 3.375 gm in 50 mls @ 100 mls/hr IV X1 ONE Stop: 03/11/25 06:05 Last Infusion: 03/11/25 06:13 Dose: Infused Sodium Chloride (Ns) 1,000 mls @ 999 mls/hr IV .Q1H1M ONE Stop: 03/11/25 06:37 Last Infusion: 03/11/25 06:42 Dose: Infused Lidocaine HCl (Lidocaine Jelly 2% (Urojet) 10 Ml Tube) 0 ml TOP X1 ONE Stop: 03/11/25 09:18 Last Admin: 03/11/25 09:09 Dose: 10 ml Morphine Sulfate (Morphine Sulf Inj 10 Mg/Ml Vial) 5 mg IVP X1 ONE Stop: 03/10/25 22:42 Last Admin: 03/11/25 00:23 Dose: 5 mg Morphine Sulfate (Morphine Sulf Inj 10 Mg/Ml Vial) 5 mg IVP X1 ONE Stop: 03/11/25 06:53 Last Admin: 03/11/25 06:57 Dose: 5 mg Ondansetron HCl (Ondansetron Inj 2 Mg/Ml Inj 2 Ml) 4 mg IV X1 ONE; Protocol Stop: 03/10/25 22:42 Last Admin: 03/11/25 00:24 Dose: 4 mg Ondansetron HCl (Ondansetron Inj 2 Mg/Ml Inj 2 Ml) 4 mg IV X1 ONE; Protocol Stop: 03/11/25 06:53 Last Admin: 03/11/25 06:57 Dose: 4 mg Assessment & Plan Plan Hank Hurd III is a 40-year-old male with past medical history of hypertension, polycythemia, recurrent SBO's, and diverticulitis status post partial colectomy due to perforation in 1998 who is admitted for management of small bowel obstruction. #Small bowel obstruction #Nausea/vomiting #Abdominal pain #History of partial colectomy Presents with 3 days of acute onset abdominal pain associated with nausea and vomiting. Last BM same day symptoms started and has not passed gas within last 24 hours prior to admission. History of partial colectomy due to diverticulitis complicated by perforation in 1998 and has had multiple abdominal surgeries leading to recurrent SBO's. Normally patient has 10-12 BMs per day, likely secondary to partial colectomy. CT A/P showed bibasilar pneumonia, abnormal fluid distended small bowel loops with wall thickening. ? NG tube on LIS ? N.p.o. ? Small bowel series ? LR at 75 cc/h #Acute kidney injury, likely prerenal in setting of N/V ? LR at 75 cc/h ? Avoid nephrotoxic agents when possible, renally dose medications #History of hypertension BP within range at this moment, will restart BP meds after med rec #Polycythemia ? Continue outpatient follow-up with [facility] Hospital management: Disposition: SBO, pending small bowel series Fluids: LR at 75 cc/hr Diet: NPO Lines: IV, NGT DVT prophylaxis: SCDs CODE STATUS: full code ----- Plan discussed with attending physician Dr. Romeo Lopez MD PGY-1 Internal Medicine Attending Provider Attestation/Addendum I have examined the patient, reviewed labs and imaging findings, discussed the case with the resident(s), and reviewed entered orders. I agree with the plan of care as outlined in this note, with these additional summaries/recommendations: After examination of the patient and review of the clinical data, I feel that this patient needs admission to the hospital for further treatment and evaluation. Patient is a 40 year old male with a medical history of diverticulitis s/p multiple bowel surgeries and appendectomy secondary to bowel perf in 1998, primary hypertension, and polycythemia followed by hematology presents to [facility] on 03/11/2025 with chief complaint of abdominal pain. Patient seen at bedside. He reports he has not passed gas or had a bowel movement. He reports approx. 20 hospital admissions in the past for SBO. CT abd/plv showed abnormal small bowel loops are fluid distended with wall thickening indicating small bowel obstruction. Start NG tube to LIS, order small bowel series, and NPO. As needed pain management. If no improvement or if small bowel series shows complete obstruction then we will consult surgery although most likely partial. Patient also noted to have HARSHA and continue maintenance fluids. Most likely secondary to prerenal azotemia. Continue to avoid nephrotoxic agents and renally dose medications. Patient has underlying polycythemia and Hgb currently 17.3. If worsens we will order therapeutic phlebotomy. Patient updated on the plan and in agreement. All questions answered to satisfaction. Please see residents note for additional details and management. Dr. Romeo MD
[2025-03-12] VITALS: BP 129/81; PULSE 78; PULSE 89; RESP 18; TEMP 36.1; O2SAT 97
[2025-03-12 04:00] VITALS: BP 125/81; PULSE 79; PULSE 84; RESP 16; TEMP 36.1; O2SAT 98
[2025-03-12] MEDS: RINGERS LACTATED 1000 ML 1,000 ML 75 ML IV (05:48)
[2025-03-12 06:20] LABS: Basophils % (Auto) 0 % (0-2.5); Eosinophils # (Auto) 0.4 Thou/mm3 (0.0-0.5); Eosinophils % (Auto) 6 % (0-10); Hematocrit 45.7 % (41.0-53.0); Immature Granulocytes % (Auto) 0 % (0-0); Immature Granulocytes Auto 0.02 Thou/mm3 (0.00-0.00); Lymphocytes # (Auto) 0.9 Thou/mm3 (1.0-4.8); Lymphocytes % (Auto) 16 % (10-50); Mean Corpuscular HGB Conc 32.8 g/dl (31.0-37.0); Mean Corpuscular Hemoglobin 30.3 pg (25.0-35.0); Mean Corpuscular Volume 92 fL (80-100); Monocytes # (Auto) 0.6 Thou/mm3 (0.0-0.8); Monocytes % (Auto) 11 % (0-12); Neutrophils # (Auto) 3.7 Thou/mm3 (1.8-7.7); Neutrophils % (Auto) 67 % (37-80); Nucleated Red Blood Cell % 0 /100 WBC (0); Platelet Count 235 Thou/mm3 (140-440); RDW Standard Deviation 47.5 fL (35.1-43.9); Red Blood Count 4.95 Miln/mm3 (4.50-5.90); White Blood Count 5.5 Thou/mm3 (3.8-10.6)
[2025-03-12 06:58] LABS: Anion Gap 10 (7-16); BUN/Creatinine Ratio 9 Ratio (12-20); Blood Urea Nitrogen 11 mg/dL (9-23); Calcium 8.2 mg/dL (8.3-10.6); Carbon Dioxide 25.2 mMol/L (20.0-31.0); Chloride 106 mMol/L (98-107); Creatinine (Component) 1.2 mg/dL (0.6-1.3); Estimated Creatinine Clearance 77.6 mL/min (>60); Glucose 74 mg/dL (74-106); Magnesium 1.9 mg/dL (1.6-2.6); Osmolality,Calculated 279 (275-295); Phosphorous 1.6 mg/dL (2.4-5.1); Potassium 3.5 mMol/L (3.4-5.1); Sodium 141 mMol/L (136-145); eGFR > 60 See Note
[2025-03-12 07:38] VITALS: BP 131/81; PULSE 82; RESP 16; TEMP 36.1; O2SAT 98
[2025-03-12 08:35] VITALS: BP 131/81; PULSE 82
[2025-03-12] MEDS: METOPROLOL SUCCINATE XL 25 MG TABCR PO (08:35)
[2025-03-12 08:37] VITALS: BP 131/81; PULSE 82
[2025-03-12] MEDS: POTASSIUM PHOS 22.5 MMOL in SODIUM CHLORIDE 0.9% 500 ML 500 ML 82.778 MMOL IV (08:37)
[2025-03-12] MEDS: LOSARTAN POTASSIUM 25 MG TABLET 50 MG PO (08:37)
--- NOTE | 2025-03-12 09:23 | PC.NURSE ---
Patient had a clear liquid diet breakfast. If he tolerates I will advance his diet. DC after lunch. Will continue to monitor patient.
[2025-03-12] MEDS: NAPH,KPH MBDB 1 PACKET (1.5 GM) PO (09:47)
--- NOTE | 2025-03-12 09:58 | PD.RESDS ---
Planned Discharge Date 03/12/25 DS: Providers Provider Date of admission: 03/11/25 07:34 Primary care physician: Moreno Washington MD Admitting Provider: Erwin Walters MD Attending Provider on Admission: Erwin Walters MD Attending Provider on DC: Tylor Lopez MD Discharging Provider: Tylor Lopez MD DS: Diagnosis Problem List Completed Was Problem List Reviewed/Reconciled?: Yes Hospital Course Hospital Course Hospital course: Hank Hurd III is a 40-year-old male with past medical history of hypertension, polycythemia, recurrent SBO's, and diverticulitis status post partial colectomy due to perforation in 1998 who presented on 03/11 for acute onset abdominal pain. Patient states that abdominal pain started 3 days ago, acute in onset, and associated with nausea and vomiting. States that his last BM was the day symptoms started and has not passed gas within last 24 hours. Of note, patient states that he had a partial colectomy due to diverticulitis complicated by perforation in 1998 and has had multiple abdominal surgeries leading to recurrent SBO's. Normally patient has 10-12 BMs per day, likely secondary to partial colectomy, and due to acute change in symptoms with abdominal pain he presented to the ED. In the ED, vitals showed heart rate 103 but otherwise vital signs stable. CBC showed hemoglobin 17.3, consistent with history of polycythemia. CHEM panel showed HARSHA with creatinine 1.5 (baseline 1.1), lactic acidosis 2.2 that downtrended to 0.[address] A/P showed bibasilar pneumonia, abnormal fluid distended small bowel loops with wall thickening. NG tube placed on LIS and small bowel series ordered. Small bowel series was negative for small bowel obstruction, patient was able to have multiple BMs throughout day and night, and NG tube was discontinued overnight. Likely that patient presented with at least partial obstruction that self resolved. Otherwise, vital signs remained stable, CBC and CHEM panel largely unremarkable other than hypophosphatemia which was replaced and patient deemed stable for discharge. Diagnoses during admission: #Small bowel obstruction, resolved #Nausea/vomiting #Abdominal pain #History of partial colectomy #Acute kidney injury, likely prerenal in setting of N/V, resolved #History of hypertension #Polycythemia Discharge instructions: ? Continue taking home medications as prescribed ? Follow-up with PCP within 1-2 weeks of discharge ? If you do not have a PCP, you can follow-up at the [facility] (you can call [phone] to make an appointment) ? If you wish to follow-up with Dr. Lopez, schedule appointment on Thursday ? Return to ED if symptoms worsen or recur ----- Plan discussed with attending physician Dr. Romeo Lopez MD PGY-1 Internal Medicine Time Spent with Patient Time attestation: Total time spent providing and/or coordinating discharge services: Time spent: Greater than 30 minutes Exam Vital Signs Temp Pulse Resp BP Pulse Ox O2 Del Method 97.0 F 82 16 131/81 H 98 Room Air 03/12/25 07:38 03/12/25 08:37 03/12/25 07:38 03/12/25 08:37 03/12/25 07:38 03/12/25 07:38 Narrative Exam General: AOx3, no acute distress, able to speak full sentences HEENT: NC/AT, mucous membranes moist, bilateral sclera anicteric Cardiovascular: regular rate and rhythm, S1/S2 present, no murmurs appreciated Pulmonary: clear to auscultation bilaterally, no rales/rhonchi/wheezes Abdominal: soft, non-tender, non-distended, no rebound/guarding, normal bowel sounds present Musculoskeletal: normal ROM, no peripheral edema Skin: warm and dry, intact, no rashes Neuro: CN II-XII intact, no focal deficits Discharge Plan Plan Patient Disposition: HOME (Self Care) Care Plan Goals: ? Continue taking home medications as prescribed ? Follow-up with PCP within 1-2 weeks of discharge ? If you do not have a PCP, you can follow-up at the [facility] (you can call [phone] to make an appointment) ? If you wish to follow-up with Dr. Lopez, schedule appointment on Thursday ? Return to ED if symptoms worsen or recur Prescriptions/Referrals Prescriptions/Med Rec: Continued cyproheptadine 4 mg tablet 4 mg PO HS Patient Comments: TAKE 1 TABLET BY MOUTH EVERY DAY AT BEDTIME losartan [Cozaar] 50 mg tablet 50 mg PO QDAY metoprolol succinate 25 mg tablet extended release 24 hr 25 mg PO QDAY Patient Comments: TAKE 1 TABLET BY MOUTH EVERY DAY FOR 90 DAYS Referrals: Moreno Washington MD [Primary Care Provider] - Patient/Caregiver Discharge Instructions Print Language: Thai Stand Alone Forms: Elaina Award Info., Patient Portal Info Letter Discharge Order Discharge Orders: Discharge (Routine); Ordered 03/12/25 Ordered By: Tylor Swartz [place] Quality Discharge Quality Measures VTE prophylaxis Attestestation MD Attestation I have examined the patient, reviewed labs and imaging findings, discussed the case with the resident(s), and reviewed entered orders. I agree with the plan of care as outlined in this note. Time Spent: [address] Romeo MD
== END 2025-03-12 11:25 | disposition home or self-care (01) | DRG 388 ==
LOC: SERX 03-11 07:34 → SERHOLD 03-11 08:22 → S3NX 03-11 15:19
PROVIDERS: Physician Assistant; Admitting Provider Student in an Organized Health Care Education/Training Program; Emergency Provider Emergency Medicine; PCP Family Medicine; Visit Provider Student in an Organized Health Care Education/Training Program
DX: K56.600 Partial intestinal obstruction, unspecified as to cause (principal); J18.9 Pneumonia, unspecified organism; E87.20 Acidosis, unspecified; N17.9 Acute kidney failure, unspecified; I10 Essential (primary) hypertension; Z79.899 Other long term (current) drug therapy; E83.39 Other disorders of phosphorus metabolism; D75.1 Secondary polycythemia; Z90.49 Acquired absence of other specified parts of digestive tract
CPT/HCPCS: 36415; 74177; 74250; 80048; 80053; 80307; 81001; 83605; 83690; 83735; 84100; 84145; 85025; 87811; 93225; 96361; 96365; 96375; 96376; 99285; A4649; J2270; J2405; J2543; J7030; J7040; J7120; Q9963; Q9967; A9270

== ENCOUNTER 2025-03-13 15:26 | Outpatient (RCR) | payer BC, SELFPAY ==
[2025-03-02 15:01] LABS: Basophils # (Auto) 0.1 Thou/mm3 (0.0-0.2); Basophils % (Auto) 1 % (0-2.5); Eosinophils # (Auto) 0.3 Thou/mm3 (0.0-0.5); Eosinophils % (Auto) 5 % (0-10); Hemoglobin 15.3 g/dL (13.5-16.0); Immature Granulocytes % (Auto) 0 % (0-0); Immature Granulocytes Auto 0.02 Thou/mm3 (0.00-0.00); Lymphocytes # (Auto) 1.3 Thou/mm3 (1.0-4.8); Lymphocytes % (Auto) 20 % (10-50); Mean Corpuscular Volume 91 fL (80-100); Monocytes # (Auto) 0.7 Thou/mm3 (0.0-0.8); Monocytes % (Auto) 11 % (0-12); Neutrophils # (Auto) 4.2 Thou/mm3 (1.8-7.7); Neutrophils % (Auto) 64 % (37-80); Nucleated Red Blood Cell % 0 /100 WBC (0); Platelet Count 223 Thou/mm3 (140-440); RDW Standard Deviation 48.7 fL (35.1-43.9); Red Blood Count 4.93 Miln/mm3 (4.50-5.90); White Blood Count 6.6 Thou/mm3 (3.8-10.6)
[2025-03-02 15:18] LABS: Alanine Aminotransferase 32 U/L (10-49); Albumin, Serum 4.1 gm/dL (3.5-5.0); Albumin/Globulin Ratio 1.9 (1.2-2.2); Alkaline Phosphatase 62 U/L (46-116); Anion Gap 12 (7-16); Aspartate Amino Transferase 27 U/L (0-34); BUN/Creatinine Ratio 15 Ratio (12-20); Bilirubin,Total 0.5 mg/dL (0.3-1.2); Blood Urea Nitrogen 16 mg/dL (9-23); Calcium 8.2 mg/dL (8.3-10.6); Calcium (Corrected) 8.2 mg/dL (8.5-10.1); Carbon Dioxide 25.3 mMol/L (20.0-31.0); Chloride 104 mMol/L (98-107); Creatinine (Component) 1.1 mg/dL (0.6-1.3); Globulin 2.2 gm/dL (2.3-3.5); Glucose 84 mg/dL (74-106); Osmolality,Calculated 281 (275-295); Potassium 3.4 mMol/L (3.4-5.1); Sodium 141 mMol/L (136-145); Total Protein 6.3 gm/dL (5.7-8.2); eGFR > 60 See Note
== END 2025-03-27 23:59 | disposition home or self-care (01) ==
LOC: SCTC 15:26
PROVIDERS: PCP Family Medicine; Referring Provider Family Medicine; Visit Provider Nurse Practitioner Family
DX: D45 Polycythemia vera (principal); Z87.19 Personal history of other diseases of the digestive system; E29.1 Testicular hypofunction
CPT/HCPCS: 36591; 80053; 85025; 99212; A4216; J1642; G0463

== ENCOUNTER 2025-05-16 14:16 | Outpatient (RCR) | payer BC, SELFPAY ==
[2025-05-16 14:54] LABS: Basophils # (Auto) 0.1 Thou/mm3 (0.0-0.2); Basophils % (Auto) 1 % (0-2.5); Eosinophils # (Auto) 0.3 Thou/mm3 (0.0-0.5); Eosinophils % (Auto) 5 % (0-10); Hematocrit 48.5 % (41.0-53.0); Hemoglobin 15.5 g/dL (13.5-16.0); Immature Granulocytes Auto 0.02 Thou/mm3 (0.00-0.00); Lymphocytes # (Auto) 1.3 Thou/mm3 (1.0-4.8); Lymphocytes % (Auto) 22 % (10-50); Mean Corpuscular HGB Conc 32.0 g/dl (31.0-37.0); Mean Corpuscular Hemoglobin 25.7 pg (25.0-35.0); Mean Corpuscular Volume 81 fL (80-100); Monocytes # (Auto) 0.5 Thou/mm3 (0.0-0.8); Monocytes % (Auto) 9 % (0-12); Neutrophils # (Auto) 3.7 Thou/mm3 (1.8-7.7); Neutrophils % (Auto) 64 % (37-80); Nucleated Red Blood Cell # 0.00 Thou/mm3 (0.00-0.00); Nucleated Red Blood Cell % 0 /100 WBC (0); Platelet Count 284 Thou/mm3 (140-440); RDW Standard Deviation 49.8 fL (35.1-43.9); Red Blood Count 6.02 Miln/mm3 (4.50-5.90); White Blood Count 5.8 Thou/mm3 (3.8-10.6)
== END 2025-05-28 23:59 | disposition home or self-care (01) ==
LOC: SCTC 14:16
PROVIDERS: PCP Family Medicine; Referring Provider Family Medicine; Visit Provider Nurse Practitioner Family
DX: D45 Polycythemia vera (principal)
CPT/HCPCS: 85025; 99195; A4216; J1642; J7040

== ENCOUNTER 2025-06-14 14:46 | Outpatient (RCR) | payer BC, SELFPAY ==
[2025-06-13 14:38] LABS: Misc Send Out* See Sep Rpt
[2025-06-13 14:45] LABS: Basophils # (Auto) 0.1 Thou/mm3 (0.0-0.2); Basophils % (Auto) 1 % (0-2.5); Eosinophils # (Auto) 0.4 Thou/mm3 (0.0-0.5); Eosinophils % (Auto) 4 % (0-10); Hematocrit 44.4 % (41.0-53.0); Hemoglobin 14.0 g/dL (13.5-16.0); Immature Granulocytes Auto 0.04 Thou/mm3 (0.00-0.00); Lymphocytes # (Auto) 1.4 Thou/mm3 (1.0-4.8); Lymphocytes % (Auto) 15 % (10-50); Mean Corpuscular HGB Conc 31.5 g/dl (31.0-37.0); Mean Corpuscular Hemoglobin 25.4 pg (25.0-35.0); Mean Corpuscular Volume 81 fL (80-100); Monocytes # (Auto) 1.0 Thou/mm3 (0.0-0.8); Monocytes % (Auto) 11 % (0-12); Neutrophils # (Auto) 6.6 Thou/mm3 (1.8-7.7); Neutrophils % (Auto) 69 % (37-80); Nucleated Red Blood Cell # 0.00 Thou/mm3 (0.00-0.00); Nucleated Red Blood Cell % 0 /100 WBC (0); Platelet Count 254 Thou/mm3 (140-440); RDW Standard Deviation 57.8 fL (35.1-43.9); Red Blood Count 5.51 Miln/mm3 (4.50-5.90); White Blood Count 9.6 Thou/mm3 (3.8-10.6)
[2025-06-13 14:58] LABS: Alanine Aminotransferase 71 U/L (10-49); Albumin, Serum 3.9 gm/dL (3.5-5.0); Albumin/Globulin Ratio 1.9 (1.2-2.2); Alkaline Phosphatase 49 U/L (46-116); Anion Gap 7 (7-16); Aspartate Amino Transferase 36 U/L (0-34); BUN/Creatinine Ratio 10 Ratio (12-20); Bilirubin,Total 0.4 mg/dL (0.3-1.2); Blood Urea Nitrogen 10 mg/dL (9-23); Calcium 8.9 mg/dL (8.3-10.6); Calcium (Corrected) 9.0 mg/dL (8.5-10.1); Carbon Dioxide 25.2 mMol/L (20.0-31.0); Chloride 108 mMol/L (98-107); Creatinine (Component) 1.0 mg/dL (0.6-1.3); Globulin 2.1 gm/dL (2.3-3.5); Glucose 75 mg/dL (74-106); Osmolality,Calculated 277 (275-295); Potassium 4.2 mMol/L (3.4-5.1); Sodium 140 mMol/L (136-145); Total Protein 6.0 gm/dL (5.7-8.2); eGFR > 60 See Note
== END 2025-06-27 23:59 | disposition home or self-care (01) ==
LOC: SCTC 14:46
PROVIDERS: PCP Family Medicine; Referring Provider Family Medicine; Visit Provider Nurse Practitioner Family
DX: D45 Polycythemia vera (principal); E29.1 Testicular hypofunction; Z87.19 Personal history of other diseases of the digestive system
CPT/HCPCS: 36591; 80053; 81256; 85025; 99212; A4216; J1642; G0463

== ENCOUNTER 2025-07-18 13:20 | Outpatient (RCR) | payer BC, SELFPAY ==
[2025-07-18 13:55] LABS: Basophils # (Auto) 0.1 Thou/mm3 (0.0-0.2); Basophils % (Auto) 1 % (0-2.5); Eosinophils # (Auto) 0.3 Thou/mm3 (0.0-0.5); Eosinophils % (Auto) 6 % (0-10); Hematocrit 47.1 % (41.0-53.0); Hemoglobin 14.9 g/dL (13.5-16.0); Immature Granulocytes Auto 0.01 Thou/mm3 (0.00-0.00); Lymphocytes # (Auto) 1.1 Thou/mm3 (1.0-4.8); Lymphocytes % (Auto) 20 % (10-50); Mean Corpuscular HGB Conc 31.6 g/dl (31.0-37.0); Mean Corpuscular Hemoglobin 25.1 pg (25.0-35.0); Mean Corpuscular Volume 79 fL (80-100); Monocytes # (Auto) 0.9 Thou/mm3 (0.0-0.8); Monocytes % (Auto) 16 % (0-12); Neutrophils # (Auto) 3.3 Thou/mm3 (1.8-7.7); Neutrophils % (Auto) 58 % (37-80); Nucleated Red Blood Cell # 0.00 Thou/mm3 (0.00-0.00); Nucleated Red Blood Cell % 0 /100 WBC (0); Platelet Count 267 Thou/mm3 (140-440); RDW Standard Deviation 49.5 fL (35.1-43.9); Red Blood Count 5.94 Miln/mm3 (4.50-5.90); White Blood Count 5.7 Thou/mm3 (3.8-10.6)
== END 2025-07-28 23:59 | disposition home or self-care (01) ==
LOC: SCTC 13:20
PROVIDERS: PCP Family Medicine; Referring Provider Family Medicine; Visit Provider Nurse Practitioner Family
DX: D45 Polycythemia vera (principal)
CPT/HCPCS: 85025; 99195; A4216; J1642; J7040

== ENCOUNTER 2025-08-16 12:52 | Outpatient (RCR) | payer BC, SELFPAY ==
[2025-08-16 13:34] LABS: Basophils # (Auto) 0.1 Thou/mm3 (0.0-0.2); Basophils % (Auto) 1 % (0-2.5); Eosinophils # (Auto) 0.2 Thou/mm3 (0.0-0.5); Eosinophils % (Auto) 4 % (0-10); Hematocrit 42.9 % (41.0-53.0); Hemoglobin 13.5 g/dL (13.5-16.0); Immature Granulocytes Auto 0.02 Thou/mm3 (0.00-0.00); Lymphocytes # (Auto) 1.1 Thou/mm3 (1.0-4.8); Lymphocytes % (Auto) 18 % (10-50); Mean Corpuscular HGB Conc 31.5 g/dl (31.0-37.0); Mean Corpuscular Hemoglobin 24.2 pg (25.0-35.0); Mean Corpuscular Volume 77 fL (80-100); Monocytes # (Auto) 0.8 Thou/mm3 (0.0-0.8); Monocytes % (Auto) 12 % (0-12); Neutrophils # (Auto) 4.2 Thou/mm3 (1.8-7.7); Neutrophils % (Auto) 66 % (37-80); Nucleated Red Blood Cell # 0.00 Thou/mm3 (0.00-0.00); Nucleated Red Blood Cell % 0 /100 WBC (0); Platelet Count 258 Thou/mm3 (140-440); RDW Standard Deviation 46.0 fL (35.1-43.9); Red Blood Count 5.59 Miln/mm3 (4.50-5.90); White Blood Count 6.4 Thou/mm3 (3.8-10.6)
== END 2025-08-27 23:59 | disposition home or self-care (01) ==
LOC: SCTC 12:52
PROVIDERS: PCP Family Medicine; Referring Provider Family Medicine; Visit Provider Nurse Practitioner Family
DX: D75.1 Secondary polycythemia (principal); E29.1 Testicular hypofunction; Z87.19 Personal history of other diseases of the digestive system
CPT/HCPCS: 36591; 85025; A4216; J1642